=== PATIENT | female | born 2005 ===

== ENCOUNTER → 2024-11-23 09:00 | Outpatient (BNV) | payer OTHER, SELFPAY | PROVIDERS: Visit Provider Internal Medicine | DX: R00.0 Tachycardia, unspecified (principal) | CPT/HCPCS: 93244 ==

== ENCOUNTER → 2024-11-23 10:00 | Outpatient (REF) | payer OTHER, SELFPAY ==
--- NOTE | 2024-11-23 | HM_ITS ---
* Total monitoring time 7 days. * Underlying rhythm is sinus with an average rate of 73/Min. * Sinus tachycardia noted about 5% of the time. * No significant ectopy or tachyarrhythmias otherwise. * No significant pauses or high-grade AV blocks. * Patient markers used with sinus rhythm and sinus tachycardia. * Patient reported symptoms including dizziness, lightheadedness, 'could feel heartbeat', nausea, fainting, sweatiness, spinning room associated with sinus rhythm and sinus tachycardia MTDD
== END ==
LOC: HO.CARD 10:00
PROVIDERS: Visit Provider Internal Medicine
DX: R00.2 Palpitations (principal)
CPT/HCPCS: 93242